=== PATIENT | male | born 1985 | race Caucasian/White ===

== ENCOUNTER 2022-02-07 17:13 | Emergency (ER) | payer BC, SELFPAY ==
[2022-02-07] MEDS ORDERED: Dexamethasone 4 mg/ml Vial ONE (17:55)
== END 2022-02-07 18:05 | disposition home or self-care (01) ==
LOC: BURERS 17:13
DX: J11.1 Influenza due to unidentified influenza virus with other respiratory manifestations (principal); F17.210 Nicotine dependence, cigarettes, uncomplicated; Z85.850 Personal history of malignant neoplasm of thyroid; Z79.899 Other long term (current) drug therapy
CPT/HCPCS: 96372; 99283; J1100

== ENCOUNTER 2022-06-20 15:37 | Emergency (ER) | payer BC, SELFPAY | END 2022-06-20 16:41 | disposition home or self-care (01) | LOC: BURERS 15:37 | DX: B35.4 Tinea corporis (principal); Z85.850 Personal history of malignant neoplasm of thyroid; Z79.899 Other long term (current) drug therapy | CPT/HCPCS: 99282 ==

== ENCOUNTER 2024-10-23 13:23 | Emergency (ER) | payer OTHER, SELFPAY | END 2024-10-23 15:21 | disposition home or self-care (01) | LOC: BURERS 13:23 | DX: S06.0X0A Concussion without loss of consciousness, initial encounter (principal); S00.03XA Contusion of scalp, initial encounter; V89.2XXA Person injured in unspecified motor-vehicle accident, traffic, initial encounter | CPT/HCPCS: 70450 ==